=== PATIENT | male | born 1960 | race Caucasian/White ===

== ENCOUNTER 2019-12-02 22:00 | Observation (INO) ==
[2019-12-02] MEDS ORDERED: Isovue-370 500 ML BOTTLE IVP ONE (22:09)
[2019-12-02] MEDS ORDERED: Dexamethasone 4 MG/ML VIAL IVP ONE (22:11)
[2019-12-02 22:42] LABS: Basophils % 0.2 %; Eosinophils # 0.1 K/mcL (0.0-0.6); Eosinophils % 0.7 %; Hematocrit 45.1 % (37.5-50.1); Hemoglobin 15.5 g/dL (12.9-16.9); Immature Granulocytes % 0.7 % (0-4); Immature Platelets 2.1 % (1.1-6.1); Lymphocytes # 1.5 K/mcL (0.6-4.6); Lymphocytes % 11.4 %; Mean Corpuscular HGB Conc 34.4 g/dL (31.6-35.5); Mean Corpuscular Hemoglobin 27.9 pg (28.0-33.3); Mean Corpuscular Volume 81.1 fL (83.0-100.0); Mean Platelet Volume 9.6 fL (9.4-12.4); Monocytes # 0.8 K/mcL (0.0-1.3); Monocytes % 5.9 %; Neutrophils # 10.7 K/mcL (1.6-8.9); Platelet Count 203 K/mcL (140-400); Red Blood Count 5.56 M/mcL (4.19-5.50); Red Cell Distribution Width 13.8 % (11.5-14.5); Segmented Neutrophils % 81.1 %; White Blood Count 13.2 K/mcL (4.3-11.1)
[2019-12-02] MEDS ORDERED: Oxymetazoline Nasal SPRAY BOTTLE NS ONE (22:51)
[2019-12-02 22:54] LABS: BUN/Creatinine Ratio 21 (6-26); Blood Urea Nitrogen 15 mg/dL (8-23); Carbon Dioxide 26 mEq/L (23-29); Chloride 100 mEq/L (98-107); Glucose 277 mg/dL (70-105); Osmolality,Calculated 293 (280-300); Potassium 3.5 mEq/L (3.5-5.1); Sodium 136 mEq/L (136-145); eGFR For African Americans > 60 (> 60); eGFR For Non-African Americans > 60 (> 60)
[2019-12-03] MEDS: *HR* OxyCODONE Oral Soln 5 MG/5 ML UD.LIQ PO STA ×2 (01:37→01:41)
[2019-12-03] MEDS ORDERED: Naloxone 0.4 MG/ML INJ IVP PRN ×2 (02:17→17:30)
[2019-12-03] MEDS ORDERED: Dextrose Gel 15 GM/37.5 ML TUBE PO PRN ×6 (02:24→17:30)
[2019-12-03] MEDS ORDERED: *HR* Dextrose 50 % in Water (Syg) 50 ML SYRINGE IVP PRN ×3 (02:24→17:30)
[2019-12-03] MEDS ORDERED: D5% in Water 1,000 ML IVC PRN ×3 (02:24→17:30)
[2019-12-03] MEDS ORDERED: 0.9 % Sodium Chloride 1,000 ML IVC SCH (02:30)
[2019-12-03] MEDS ORDERED: Insulin DETEMIR 100 UNIT/ML X5UNITS SQ SCH ×3 (02:30→21:00)
[2019-12-03] MEDS ORDERED: Ketorolac 30 MG/ML VIAL IVP PRN ×2 (02:39→08:12)
[2019-12-03] MEDS: Insulin LISPRO 300 UNITS/3 ML VIAL SQ SCH ×6 (02:56→15:32)
[2019-12-03] MEDS: Dexamethasone 4 MG/ML VIAL IVP SCH ×3 (04:30→15:03)
[2019-12-03 05:51] LABS: Basophils % 0.1 %; Hematocrit 42.7 % (37.5-50.1); Hemoglobin 14.4 g/dL (12.9-16.9); Immature Granulocytes % 0.4 % (0-4); Lymphocytes # 0.5 K/mcL (0.6-4.6); Lymphocytes % 3.4 %; Mean Corpuscular HGB Conc 33.7 g/dL (31.6-35.5); Mean Corpuscular Hemoglobin 28.2 pg (28.0-33.3); Mean Corpuscular Volume 83.7 fL (83.0-100.0); Mean Platelet Volume 9.7 fL (9.4-12.4); Monocytes # 0.3 K/mcL (0.0-1.3); Monocytes % 2.3 %; Neutrophils # 13.3 K/mcL (1.6-8.9); Platelet Count 202 K/mcL (140-400); Red Cell Distribution Width 13.8 % (11.5-14.5); Segmented Neutrophils % 93.8 %; White Blood Count 14.2 K/mcL (4.3-11.1)
[2019-12-03] MEDS ORDERED: Dexamethasone 4 MG/ML VIAL IVP SCH ×2 (06:00→22:30)
[2019-12-03 06:08] LABS: Alanine Aminotransferase 17 Units/L (7-52); Albumin 3.9 g/dL (3.5-5.7); Albumin/Globulin Ratio 1.3 (1.1-2.2); Alkaline Phosphatase 74 Units/L (34-104); Aspartate Amino Transferase 12 Units/L (13-39); BUN/Creatinine Ratio 23 (6-26); Bilirubin,Total 0.5 mg/dL (0.3-1.0); Blood Urea Nitrogen 16 mg/dL (8-23); Calcium 8.8 mg/dL (8.6-10.3); Carbon Dioxide 26 mEq/L (23-29); Chloride 100 mEq/L (98-107); Globulin 2.9 g/dL (2.4-3.5); Glucose 301 mg/dL (70-105); Osmolality,Calculated 296 (280-300); Potassium 3.8 mEq/L (3.5-5.1); Sodium 137 mEq/L (136-145); Total Protein 6.8 g/dL (6.4-8.9); eGFR For African Americans > 60 (> 60); eGFR For Non-African Americans > 60 (> 60)
[2019-12-03] MEDS ORDERED: *HR* Metoprolol 5 MG/5 ML VIAL IVP PRN ×2 (08:09→17:30)
[2019-12-03] MEDS ORDERED: Metoprolol XL (24 HR) Succ 25 MG TAB.ER.24H PO SCH (09:00)
[2019-12-03] MEDS ORDERED: Aspirin Enteric Coated 81 MG Tablet PO SCH (09:00)
[2019-12-03] MEDS ORDERED: amLODIPine 5 MG TABLET PO SCH ×2 (09:00→16:28)
[2019-12-03] MEDS ORDERED: Gabapentin 300 MG CAPSULE PO SCH (09:00)
[2019-12-03] MEDS: Piperacillin/Tazobactam 3.375 GM in 0.9 % Sodium Chloride Mini Bag 100 ML IVPB SCH ×2 (09:02→16:37)
[2019-12-03] MEDS: Famotidine 20 MG/2 ML VIAL IVP SCH ×2 (09:02→16:36)
[2019-12-03] MEDS ORDERED: Ibuprofen 400 MG TABLET PO PRN ×2 (16:26→17:30)
[2019-12-03] MEDS ORDERED: Piperacillin/Tazobactam 3.375 GM in 0.9 % Sodium Chloride Mini Bag 100 ML IVPB SCH (18:00)
[2019-12-03] MEDS ORDERED: Famotidine 20 MG/2 ML VIAL IVP SCH (18:00)
[2019-12-03] MEDS ORDERED: Gabapentin 400 MG CAPSULE PO SCH ×3 (21:00)
[2019-12-03] MEDS ORDERED: Insulin LISPRO 300 UNITS/3 ML VIAL SQ SCH (21:00)
[2019-12-03] MEDS ORDERED: Acetaminophen 325 MG TABLET PO ONE (21:10)
[2019-12-04] MEDS: Piperacillin/Tazobactam 3.375 GM in 0.9 % Sodium Chloride Mini Bag 100 ML IVPB SCH ×2 (00:17→08:26)
[2019-12-04 01:25] LABS: Basophils % 0.1 %; Hematocrit 41.6 % (37.5-50.1); Hemoglobin 14.1 g/dL (12.9-16.9); Immature Granulocytes % 0.8 % (0-4); Lymphocytes # 0.5 K/mcL (0.6-4.6); Lymphocytes % 4.4 %; Mean Corpuscular HGB Conc 33.9 g/dL (31.6-35.5); Mean Corpuscular Hemoglobin 27.3 pg (28.0-33.3); Mean Corpuscular Volume 80.5 fL (83.0-100.0); Mean Platelet Volume 9.4 fL (9.4-12.4); Monocytes # 0.3 K/mcL (0.0-1.3); Monocytes % 2.9 %; Neutrophils # 10.7 K/mcL (1.6-8.9); Platelet Count 214 K/mcL (140-400); Red Blood Count 5.17 M/mcL (4.19-5.50); Red Cell Distribution Width 13.8 % (11.5-14.5); Segmented Neutrophils % 91.8 %; White Blood Count 11.7 K/mcL (4.3-11.1)
[2019-12-04 01:42] LABS: Alanine Aminotransferase 15 Units/L (7-52); Albumin 3.7 g/dL (3.5-5.7); Albumin/Globulin Ratio 1.3 (1.1-2.2); Alkaline Phosphatase 67 Units/L (34-104); Aspartate Amino Transferase 12 Units/L (13-39); BUN/Creatinine Ratio 23 (6-26); Bilirubin,Total 0.5 mg/dL (0.3-1.0); Blood Urea Nitrogen 18 mg/dL (8-23); Calcium 8.9 mg/dL (8.6-10.3); Carbon Dioxide 25 mEq/L (23-29); Chloride 103 mEq/L (98-107); Globulin 2.8 g/dL (2.4-3.5); Glucose 244 mg/dL (70-105); Magnesium 2.1 mg/dL (1.6-2.6); Osmolality,Calculated 296 (280-300); Sodium 138 mEq/L (136-145); Total Protein 6.5 g/dL (6.4-8.9); eGFR For African Americans > 60 (> 60); eGFR For Non-African Americans > 60 (> 60)
[2019-12-04] MEDS ORDERED: Famotidine 20 MG/2 ML VIAL IVP SCH (06:00)
[2019-12-04] MEDS ORDERED: Insulin LISPRO 300 UNITS/3 ML VIAL SQ SCH ×2 (07:30→21:00)
[2019-12-04] MEDS ORDERED: Ibuprofen 400 MG TABLET PO PRN (07:58)
[2019-12-04] MEDS ORDERED: predniSONE 20 MG TABLET PO SCH (09:00)
[2019-12-04] MEDS ORDERED: Insulin DETEMIR 100 UNIT/ML X5UNITS SQ SCH (09:00)
[2019-12-04] MEDS ORDERED: Gabapentin 300 MG CAPSULE PO SCH ×2 (09:00)
[2019-12-04] MEDS ORDERED: FLU Vac QV 19-20 (6Month+)/PF 0.5 ML SYRINGE IM ONE (09:41)
[2019-12-04] MEDS ORDERED: *HR* Metoprolol 5 MG/5 ML VIAL IVP PRN (10:29)
[2019-12-04 10:30] VITALS: BP 155/78
[2019-12-04] MEDS ORDERED: amLODIPine 5 MG TABLET PO SCH (16:24)
[2019-12-04] MEDS ORDERED: Famotidine 20 MG TABLET PO SCH (16:30)
== END 2019-12-04 11:06 | disposition home or self-care (01) ==
LOC: ICNU 22:00 → EMEROOARM 22:00 → ICNU 12-03 00:50 → SUATTDRO 12-03 02:17 → 2ANU 12-03 18:27
PROVIDERS: ADMIT Student in an Organized Health Care Education/Training Program; ATTEND Family Medicine

== ENCOUNTER 2019-12-07 09:15 | Observation (INO) ==
[2019-12-07] MEDS ORDERED: *HR* Propofol 200 MG/20 ML VIAL IVP ONE (10:03)
[2019-12-07] MEDS ORDERED: *HR* Midazolam HCl 2 MG/2 ML VIAL ONE (10:03)
[2019-12-07] MEDS ORDERED: *HR* FentaNYL (PF) 100 MCG/2 ML VIAL ONE ×2 (10:03→11:02)
[2019-12-07] MEDS ORDERED: Lidocaine -MPF 2% 2 ML VIAL ONE ×2 (10:06→12:46)
[2019-12-07] MEDS ORDERED: Ondansetron 4 MG/2 ML VIAL ONE (10:06)
[2019-12-07] MEDS ORDERED: Lidocaine HCL 4 ML Topical Solution (Laryng-O-Jet Kit Sterile Pak) TP ONE (10:06)
[2019-12-07] MEDS ORDERED: *HR* Succinylcholine 200 MG/10 ML VIAL IVP ONE ×2 (10:06→11:18)
[2019-12-07] MEDS ORDERED: *HR* Rocuronium Bromide 50 MG/5 ML VIAL ONE (10:07)
[2019-12-07 10:09] LABS: Hematocrit 45.2 % (37.5-50.1); Hemoglobin 15.1 g/dL (12.9-16.9); Mean Corpuscular HGB Conc 33.4 g/dL (31.6-35.5); Mean Corpuscular Hemoglobin 27.1 pg (28.0-33.3); Mean Platelet Volume 9.6 fL (9.4-12.4); Platelet Count 240 K/mcL (140-400); Red Blood Count 5.58 M/mcL (4.19-5.50); Red Cell Distribution Width 13.8 % (11.5-14.5); White Blood Count 16.7 K/mcL (4.3-11.1)
[2019-12-07 10:13] LABS: Prothrombin Time 10.9 Seconds (9.4-12.1)
[2019-12-07 10:16] LABS: Activated Partial Thrombo Time 31.5 Seconds (26.0-36.0)
[2019-12-07] MEDS ORDERED: Ferric Subsulfate 8 ML TOPICAL TP ONE (10:23)
[2019-12-07 10:27] LABS: BUN/Creatinine Ratio 34 (6-26); Blood Urea Nitrogen 25 mg/dL (8-23); Calcium 9.3 mg/dL (8.6-10.3); Carbon Dioxide 28 mEq/L (23-29); Chloride 97 mEq/L (98-107); Glucose 445 mg/dL (70-105); Osmolality,Calculated 308 (280-300); Potassium 4.1 mEq/L (3.5-5.1); Sodium 137 mEq/L (136-145); eGFR For African Americans > 60 (> 60); eGFR For Non-African Americans > 60 (> 60)
[2019-12-07] MEDS ORDERED: Metoclopramide 10 MG/2 ML VIAL ONE (10:28)
[2019-12-07] MEDS ORDERED: Famotidine 20 MG/2 ML VIAL ONE (10:28)
[2019-12-07] MEDS ORDERED: Acetaminophen IV 1,000 MG/100 ML INFUS..BTL ONE (10:28)
[2019-12-07] MEDS ORDERED: 0.9 % Sodium Chloride 1,000 ML IVC SCH (10:30)
[2019-12-07] MEDS ORDERED: Dexamethasone 4 MG/ML VIAL ONE (11:09)
[2019-12-07] MEDS ORDERED: *HR* Labetalol 20 MG/4 ML SYRINGE IVP PRN (11:12)
[2019-12-07] MEDS ORDERED: *HR* Promethazine 25 MG/ML VIAL IVP PRN (11:12)
[2019-12-07] MEDS ORDERED: Ondansetron 4 MG/2 ML VIAL IVP ONE (11:12)
[2019-12-07] MEDS ORDERED: Insulin Human Regular 20 UNIT in 0.9 % Sodium Chloride 10 ML IV ONE ×2 (11:50→11:53)
[2019-12-07] MEDS ORDERED: hydrALAZINE 25 MG TABLET PO SCH (12:09)
[2019-12-07] MEDS ORDERED: Insulin DETEMIR 100 UNIT/ML X5UNITS SQ SCH ×2 (12:11→12:15)
[2019-12-07] MEDS: *HR* HYDROmorphone (PF) 1 MG/ML SYRINGE IVP PRN ×2 (12:30→12:40)
[2019-12-07] MEDS ORDERED: *HR* Dextrose 50 % in Water (Syg) 50 ML SYRINGE IVP PRN ×2 (14:41→17:31)
[2019-12-07] MEDS ORDERED: D5% in Water 1,000 ML IVC PRN ×2 (14:41→17:31)
[2019-12-07] MEDS ORDERED: Dextrose Gel 15 GM/37.5 ML TUBE PO PRN ×4 (14:41→17:31)
[2019-12-07] MEDS ORDERED: Acetaminophen 325 MG TABLET PO PRN (14:41)
[2019-12-07] MEDS: Insulin LISPRO 300 UNITS/3 ML VIAL SQ SCH ×2 (15:27→17:51)
[2019-12-07] MEDS ORDERED: Naloxone 0.4 MG/ML INJ IVP PRN (16:13)
[2019-12-07] MEDS ORDERED: Ondansetron 4 MG/2 ML VIAL IVP PRN (16:13)
[2019-12-07] MEDS: Dexamethasone 4 MG/ML VIAL IVP SCH (16:37)
[2019-12-07] MEDS ORDERED: hydrOXYzine pamoate 25 MG CAPSULE PO PRN (17:18)
[2019-12-07] MEDS: *HR* HYDROmorphone 2 MG/ML SYRINGE IVP PRN ×2 (18:18→22:58)
[2019-12-07] MEDS: 0.9 % Sodium Chloride 1,000 ML IVC SCH ×2 (18:38→20:51)
[2019-12-07] MEDS ORDERED: Insulin LISPRO 300 UNITS/3 ML VIAL SQ SCH (21:00)
[2019-12-08] MEDS: Dexamethasone 4 MG/ML VIAL IVP SCH (00:49)
[2019-12-08 05:33] LABS: Basophils # 0.1 K/mcL (0.0-0.2); Basophils % 0.5 %; Hematocrit 40.7 % (37.5-50.1); Hemoglobin 13.9 g/dL (12.9-16.9); Immature Granulocytes % 2.2 % (0-4); Lymphocytes # 0.8 K/mcL (0.6-4.6); Lymphocytes % 5.3 %; Mean Corpuscular HGB Conc 34.2 g/dL (31.6-35.5); Mean Corpuscular Hemoglobin 27.4 pg (28.0-33.3); Mean Corpuscular Volume 80.3 fL (83.0-100.0); Mean Platelet Volume 9.5 fL (9.4-12.4); Monocytes # 0.3 K/mcL (0.0-1.3); Monocytes % 2.3 %; Neutrophils # 13.2 K/mcL (1.6-8.9); Platelet Count 227 K/mcL (140-400); Red Blood Count 5.07 M/mcL (4.19-5.50); Red Cell Distribution Width 13.7 % (11.5-14.5); Segmented Neutrophils % 89.7 %; White Blood Count 14.7 K/mcL (4.3-11.1)
[2019-12-08] MEDS: 0.9 % Sodium Chloride 1,000 ML IVC SCH (05:41)
[2019-12-08 05:46] LABS: BUN/Creatinine Ratio 30 (6-26); Blood Urea Nitrogen 17 mg/dL (8-23); Calcium 8.8 mg/dL (8.6-10.3); Carbon Dioxide 24 mEq/L (23-29); Chloride 100 mEq/L (98-107); Glucose 318 mg/dL (70-105); Magnesium 1.8 mg/dL (1.6-2.6); Osmolality,Calculated 296 (280-300); Potassium 4.3 mEq/L (3.5-5.1); Sodium 136 mEq/L (136-145); eGFR For African Americans > 60 (> 60); eGFR For Non-African Americans > 60 (> 60)
[2019-12-08 05:58] LABS: Thyroid Stimulating Hormone 0.362 mcIU/mL (0.340-5.600)
[2019-12-08 07:02] LABS: Estimated Average Glucose 243 mg/dl
[2019-12-08] MEDS ORDERED: Insulin LISPRO 300 UNITS/3 ML VIAL SQ SCH (08:00)
[2019-12-08] MEDS: Insulin LISPRO 300 UNITS/3 ML VIAL SQ SCH ×2 (08:22→12:17)
[2019-12-08] MEDS ORDERED: amLODIPine 5 MG TABLET PO SCH (09:00)
[2019-12-08] MEDS ORDERED: Insulin DETEMIR 100 UNIT/ML X5UNITS SQ SCH ×2 (09:00)
[2019-12-08] MEDS ORDERED: Cholecalciferol (D-3) 1,000 UNIT (25MCG) TABLET PO SCH (09:00)
[2019-12-08] MEDS ORDERED: Metoprolol XL (24 HR) Succ 25 MG TAB.ER.24H PO SCH (09:00)
[2019-12-08] MEDS ORDERED: Metoprolol XL (24 HR) Succ 50 MG TAB.ER.24H PO SCH (09:15)
[2019-12-08] MEDS ORDERED: Metoprolol XL (24 HR) Succ 25 MG TAB.ER.24H PO ONE (10:15)
[2019-12-08] MEDS ORDERED: *HR* LORazepam 2 MG/ML VIAL IVP PRN (11:11)
[2019-12-08 15:21] VITALS: BP 154/85
[2019-12-09] MEDS ORDERED: Metoprolol XL (24 HR) Succ 50 MG TAB.ER.24H PO SCH (09:00)
== END 2019-12-08 18:42 | disposition home or self-care (01) ==
LOC: 3ANU 09:15 → EMEROOARM 09:15 → 3ANU 10:24 → SUATTDRO 10:28
PROVIDERS: ADMIT Pharmacist; ATTEND Pharmacist

== ENCOUNTER 2019-12-13 07:40 | Observation (INO) ==
[2019-12-13] MEDS ORDERED: 0.9 % Sodium Chloride 1,000 ML IVC ONE (07:56)
[2019-12-13] MEDS ORDERED: 0.9 % Sodium Chloride 1,000 ML ONE (07:58)
[2019-12-13 08:13] LABS: Basophils % 0.3 %; Eosinophils # 0.4 K/mcL (0.0-0.6); Hematocrit 31.4 % (37.5-50.1); Immature Granulocytes % 0.8 % (0-4); Lymphocytes # 1.5 K/mcL (0.6-4.6); Lymphocytes % 10.5 %; Mean Corpuscular HGB Conc 34.7 g/dL (31.6-35.5); Mean Corpuscular Hemoglobin 27.9 pg (28.0-33.3); Mean Corpuscular Volume 80.5 fL (83.0-100.0); Mean Platelet Volume 9.8 fL (9.4-12.4); Monocytes # 0.9 K/mcL (0.0-1.3); Monocytes % 6.4 %; Neutrophils # 11.5 K/mcL (1.6-8.9); Platelet Count 236 K/mcL (140-400); Red Cell Distribution Width 13.9 % (11.5-14.5); White Blood Count 14.5 K/mcL (4.3-11.1)
[2019-12-13 08:15] LABS: Hemoglobin 10.9 g/dL (12.9-16.9)
[2019-12-13] MEDS ORDERED: *HR* FentaNYL (PF) 100 MCG/2 ML VIAL IVP ONE (08:18)
[2019-12-13 08:26] LABS: Prothrombin Time 11.8 Seconds (9.4-12.1)
[2019-12-13 08:46] LABS: BUN/Creatinine Ratio 37 (6-26); Blood Urea Nitrogen 26 mg/dL (8-23); Calcium 8.6 mg/dL (8.6-10.3); Carbon Dioxide 26 mEq/L (23-29); Chloride 99 mEq/L (98-107); Glucose 561 mg/dL (70-105); Osmolality,Calculated 314 (280-300); Potassium 4.2 mEq/L (3.5-5.1); Sodium 137 mEq/L (136-145); Troponin I < 0.03 ng/mL (< 0.04); eGFR For African Americans > 60 (> 60); eGFR For Non-African Americans > 60 (> 60)
[2019-12-13] MEDS ORDERED: Insulin Human Regular 10 UNIT in 0.9 % Sodium Chloride 10 ML IV ONE ×2 (08:47→19:35)
[2019-12-13] MEDS ORDERED: *HR* Succinylcholine 200 MG/10 ML VIAL IVP ONE (09:08)
[2019-12-13] MEDS ORDERED: Dexamethasone 4 MG/ML VIAL ONE (09:08)
[2019-12-13] MEDS ORDERED: Lidocaine -MPF 2% 2 ML VIAL ONE ×2 (09:08)
[2019-12-13] MEDS ORDERED: *HR* Propofol 200 MG/20 ML VIAL IVP ONE (09:08)
[2019-12-13] MEDS ORDERED: *HR* FentaNYL (PF) 100 MCG/2 ML VIAL ONE (09:08)
[2019-12-13] MEDS ORDERED: *HR* Rocuronium Bromide 50 MG/5 ML VIAL ONE (09:08)
[2019-12-13] MEDS ORDERED: Ondansetron 4 MG/2 ML VIAL ONE (09:08)
[2019-12-13] MEDS ORDERED: Lidocaine HCL 4 ML Topical Solution (Laryng-O-Jet Kit Sterile Pak) TP ONE (09:08)
[2019-12-13] MEDS ORDERED: Albuterol Neb 1.25 MG/3 ML VIAL IH ONE (09:14)
[2019-12-13] MEDS ORDERED: Insulin Human Regular 20 UNIT in 0.9 % Sodium Chloride 10 ML IV ONE (09:14)
[2019-12-13] MEDS ORDERED: Acetaminophen IV 1,000 MG/100 ML INFUS..BTL ONE (09:18)
[2019-12-13] MEDS ORDERED: Albuterol 2.5 MG/3 ML NEBULIZER ONE (09:18)
[2019-12-13] MEDS ORDERED: Metoclopramide 10 MG/2 ML VIAL ONE (09:18)
[2019-12-13] MEDS ORDERED: Famotidine 20 MG/2 ML VIAL ONE (09:18)
[2019-12-13] MEDS ORDERED: Albuterol 2.5 MG/3 ML NEBULIZER IH STA (09:20)
[2019-12-13] MEDS ORDERED: Bupivacaine/EPI 1:200k 0.5%PF 30 ML VIAL ONE (09:51)
[2019-12-13] MEDS ORDERED: Ondansetron 4 MG/2 ML VIAL IVP ONE (10:35)
[2019-12-13] MEDS ORDERED: ceFAZolin 2,000 MG in 0.9 % Sodium Chloride 100 ML IVPB ONE (10:35)
[2019-12-13] MEDS ORDERED: *HR* Labetalol 20 MG/4 ML SYRINGE IVP ONE (10:35)
[2019-12-13] MEDS ORDERED: *HR* Promethazine 25 MG/ML VIAL IVP PRN ×2 (10:35→11:36)
[2019-12-13] MEDS ORDERED: Morphine Sulfate 2 MG/ML SYRINGE IVP PRN (10:36)
[2019-12-13] MEDS ORDERED: *HR* Labetalol 20 MG/4 ML SYRINGE IVP PRN (10:39)
[2019-12-13] MEDS ORDERED: HYDROcodone/Acet 5-217 mg/10mL 10 ML UDC PO PRN (11:03)
[2019-12-13] MEDS ORDERED: Ondansetron 4 MG/2 ML VIAL IVP PRN ×2 (11:36→17:19)
[2019-12-13] MEDS ORDERED: Naloxone 0.4 MG/ML INJ IVP PRN ×2 (11:36→17:19)
[2019-12-13] MEDS ORDERED: MOM Conc 10 ML UD.LIQ PO PRN (11:36)
[2019-12-13] MEDS ORDERED: Mag Hydrox/Al Hydrox/Simeth 30 ML UDC PO PRN (11:36)
[2019-12-13] MEDS ORDERED: *HR* OxyCODONE Oral Soln 5 MG/5 ML UD.LIQ PO PRN (11:41)
[2019-12-13] MEDS ORDERED: *HR* Dextrose 50 % in Water (Syg) 50 ML SYRINGE IVP PRN ×2 (11:48→17:20)
[2019-12-13] MEDS ORDERED: D5% in Water 1,000 ML IVC PRN ×2 (11:48→17:20)
[2019-12-13] MEDS ORDERED: Dextrose Gel 15 GM/37.5 ML TUBE PO PRN ×4 (11:48→17:20)
[2019-12-13] MEDS ORDERED: hydrOXYzine pamoate 25 MG CAPSULE PO PRN (14:18)
[2019-12-13] MEDS ORDERED: Insulin LISPRO 300 UNITS/3 ML VIAL SQ SCH ×3 (16:30→21:00)
[2019-12-13] MEDS: Insulin LISPRO 300 UNITS/3 ML VIAL SQ SCH (18:28)
[2019-12-13] MEDS: *HR* OxyCODONE Oral Soln 5 MG/5 ML UD.LIQ PO PRN (20:12)
[2019-12-13] MEDS: Insulin DETEMIR 100 UNIT/ML X5UNITS SQ SCH (20:53)
[2019-12-13] MEDS ORDERED: [UNRECOGNIZED DRUG - OTHER] PO SCH (21:00)
[2019-12-13] MEDS ORDERED: LEVOMEFOLATE PO SCH (21:00)
[2019-12-13] MEDS ORDERED: B6 PO SCH (21:00)
[2019-12-13] MEDS ORDERED: B12 PO SCH (21:00)
[2019-12-13] MEDS ORDERED: ALGAL OIL PO SCH (21:00)
[2019-12-13] MEDS ORDERED: Gabapentin 400 MG CAPSULE PO SCH (21:00)
[2019-12-14 04:25] LABS: Basophils % 0.1 %; Hematocrit 26.3 % (37.5-50.1); Immature Granulocytes % 1.1 % (0-4); Lymphocytes # 0.8 K/mcL (0.6-4.6); Mean Corpuscular HGB Conc 33.1 g/dL (31.6-35.5); Mean Corpuscular Hemoglobin 27.7 pg (28.0-33.3); Mean Corpuscular Volume 83.8 fL (83.0-100.0); Mean Platelet Volume 9.7 fL (9.4-12.4); Monocytes # 0.4 K/mcL (0.0-1.3); Neutrophils # 9.5 K/mcL (1.6-8.9); Platelet Count 209 K/mcL (140-400); Red Blood Count 3.14 M/mcL (4.19-5.50); Red Cell Distribution Width 13.7 % (11.5-14.5); Segmented Neutrophils % 87.8 %; White Blood Count 10.8 K/mcL (4.3-11.1)
[2019-12-14 04:28] LABS: Hemoglobin 8.7 g/dL (12.9-16.9)
[2019-12-14 04:43] LABS: BUN/Creatinine Ratio 42 (6-26); Blood Urea Nitrogen 25 mg/dL (8-23); Calcium 8.4 mg/dL (8.6-10.3); Carbon Dioxide 29 mEq/L (23-29); Chloride 102 mEq/L (98-107); Glucose 305 mg/dL (70-105); Osmolality,Calculated 304 (280-300); Potassium 4.2 mEq/L (3.5-5.1); Sodium 139 mEq/L (136-145); eGFR For African Americans > 60 (> 60); eGFR For Non-African Americans > 60 (> 60)
[2019-12-14] MEDS ORDERED: Insulin LISPRO 300 UNITS/3 ML VIAL SQ SCH (07:30)
[2019-12-14] MEDS: Insulin LISPRO 300 UNITS/3 ML VIAL SQ SCH ×4 (08:49→13:57)
[2019-12-14] MEDS: *HR* OxyCODONE Oral Soln 5 MG/5 ML UD.LIQ PO PRN (08:55)
[2019-12-14] MEDS: Insulin DETEMIR 100 UNIT/ML X5UNITS SQ SCH (08:56)
[2019-12-14] MEDS ORDERED: Cholecalciferol (D-3) 1,000 UNIT (25MCG) TABLET PO SCH (09:00)
[2019-12-14] MEDS ORDERED: Metoprolol XL (24 HR) Succ 50 MG TAB.ER.24H PO SCH ×2 (09:00)
[2019-12-14] MEDS ORDERED: amLODIPine 5 MG TABLET PO SCH ×2 (09:00)
[2019-12-14] MEDS ORDERED: Multivit/Ca/Min/Fe/FA 1 TAB TABLET PO SCH (09:00)
[2019-12-14] MEDS ORDERED: *HR* Pioglitazone 45 MG TABLET PO SCH (09:00)
[2019-12-14] MEDS ORDERED: Gabapentin 300 MG CAPSULE PO SCH (09:00)
[2019-12-14 10:59] VITALS: BP 127/70
[2019-12-14] MEDS ORDERED: Insulin LISPRO 300 UNITS/3 ML VIAL SQ ONE (21:10)
== END 2019-12-14 14:26 | disposition home or self-care (01) ==
LOC: EMEROOARM 07:40 → 3ANU 07:40 → EMEROOARM 09:07 → SUATTDRO 09:20 → 3BNU 10:19
PROVIDERS: ADMIT Internal Medicine; ATTEND Internal Medicine

== ENCOUNTER 2020-01-28 10:12 | Inpatient (IN) ==
[2020-01-28 10:33] LABS: Basophils % 0.2 %; Eosinophils # 0.1 K/mcL (0.0-0.6); Eosinophils % 2.9 %; Hematocrit 34.7 % (37.5-50.1); Hemoglobin 11.3 g/dL (12.9-16.9); Immature Granulocytes % 0.4 % (0-4); Lymphocytes # 0.3 K/mcL (0.6-4.6); Lymphocytes % 6.7 %; Mean Corpuscular HGB Conc 32.6 g/dL (31.6-35.5); Mean Corpuscular Hemoglobin 25.7 pg (28.0-33.3); Mean Corpuscular Volume 78.9 fL (83.0-100.0); Mean Platelet Volume 8.5 fL (9.4-12.4); Monocytes # 0.5 K/mcL (0.0-1.3); Monocytes % 10.9 %; Neutrophils # 3.6 K/mcL (1.6-8.9); Platelet Count 150 K/mcL (140-400); Red Cell Distribution Width 13.9 % (11.5-14.5); Segmented Neutrophils % 78.9 %; White Blood Count 4.5 K/mcL (4.3-11.1)
[2020-01-28] MEDS ORDERED: 0.9 % Sodium Chloride 1,000 ML IVC STA (10:48)
[2020-01-28 10:57] LABS: Alanine Aminotransferase 28 Units/L (7-52); Albumin 3.4 g/dL (3.5-5.7); Albumin/Globulin Ratio 1.3 (1.1-2.2); Alkaline Phosphatase 71 Units/L (34-104); Aspartate Amino Transferase 22 Units/L (13-39); BUN/Creatinine Ratio 18 (6-26); Bilirubin,Direct 0.1 mg/dL (0.0-0.2); Bilirubin,Indirect 0.4 mg/dL (0.0-1.0); Bilirubin,Total 0.5 mg/dL (0.3-1.0); Blood Urea Nitrogen 15 mg/dL (8-23); Calcium 8.6 mg/dL (8.6-10.3); Carbon Dioxide 23 mEq/L (23-29); Chloride 94 mEq/L (98-107); Globulin 2.6 g/dL (2.4-3.5); Glucose 214 mg/dL (70-105); Osmolality,Calculated 283 (280-300); Potassium 3.3 mEq/L (3.5-5.1); Sodium 133 mEq/L (136-145); eGFR For African Americans > 60 (> 60); eGFR For Non-African Americans > 60 (> 60)
[2020-01-28 10:58] LABS: Troponin I < 0.03 ng/mL (< 0.04)
[2020-01-28 11:10] LABS: Magnesium 1.3 mg/dL (1.6-2.6)
[2020-01-28 11:24] LABS: Thyroid Stimulating Hormone 0.666 mcIU/mL (0.340-5.600)
[2020-01-28 11:51] LABS: Bilirubin,Urine Moderate (Negative); Blood,Urine Negative (Negative); Color,Urine Yellow (Yellow); Glucose,Urine (UA) 250 mg/dL (Normal); Ketones,Urine >=160 mg/dL (Negative); Leukocyte Esterase,Urine Negative (Negative); Nitrite,Urine Negative (Negative); PH,Urine 5.5 pH Units (5.0-8.0); Protein,Urine 100 mg/dL (Neg-Trace); Specific Gravity,Urine 1.018 (1.010-1.025); Urobilinogen,Urine Normal (Normal)
[2020-01-28 11:53] LABS: Hyaline Casts,Urine None Seen per lpf (None-Few); RBC,Urine 0-3 per hpf (0-3); Squamous Epithelial Cell,Urine Many per lpf (None-Few)
[2020-01-28 11:54] LABS: Clarity,Urine Slightly Hazy (Clear)
[2020-01-28 12:04] LABS: Amorphous Sediment,Urine Few per hpf (Few); Bacteria,Urine Moderate per hpf (None-Few)
[2020-01-28] MEDS ORDERED: *HR* HYDROcodone/Acet 5/325 mg TABLET PO PRN (12:32)
[2020-01-28] MEDS ORDERED: *HR* Promethazine 25 MG/ML VIAL IVP PRN (12:32)
[2020-01-28] MEDS ORDERED: Acetaminophen 325 MG TABLET PO PRN (12:32)
[2020-01-28] MEDS ORDERED: *HR* OxyCODONE Immed Rel 5 MG TABLET PO PRN (12:32)
[2020-01-28] MEDS ORDERED: Naloxone 0.4 MG/ML INJ IVP PRN (12:32)
[2020-01-28] MEDS ORDERED: Ondansetron ODT 4 MG TAB.RAPDIS SL PRN (12:32)
[2020-01-28] MEDS ORDERED: *HR* Heparin 5,000 UNIT/ML VIAL IVP ONE (12:45)
[2020-01-28] MEDS ORDERED: *HR* Heparin 5,000 UNIT/ML VIAL IVP PRN ×2 (12:45)
[2020-01-28] MEDS ORDERED: Potassium Chloride 40 MEQ, Lidocaine 1% 2 ML in 0.9 % Sodium Chloride 500 ML IVPB ONE (12:47)
[2020-01-28] MEDS ORDERED: Ipratropium/Albuterol Neb 3 ML IH PRN (12:50)
[2020-01-28] MEDS ORDERED: Dextrose Gel 15 GM/37.5 ML TUBE PO PRN ×2 (12:51)
[2020-01-28] MEDS ORDERED: *HR* Dextrose 50 % in Water (Syg) 50 ML SYRINGE IVP PRN (12:51)
[2020-01-28] MEDS ORDERED: D5% in Water 1,000 ML IVC PRN (12:51)
[2020-01-28] MEDS ORDERED: *HR* Metoprolol 5 MG/5 ML VIAL IVP PRN (12:55)
[2020-01-28 13:09] LABS: Hematocrit 34.4 % (37.5-50.1); Hemoglobin 10.9 g/dL (12.9-16.9); Mean Corpuscular HGB Conc 31.7 g/dL (31.6-35.5); Mean Corpuscular Hemoglobin 25.1 pg (28.0-33.3); Mean Corpuscular Volume 79.3 fL (83.0-100.0); Mean Platelet Volume 8.4 fL (9.4-12.4); Platelet Count 153 K/mcL (140-400); Red Blood Count 4.34 M/mcL (4.19-5.50); Red Cell Distribution Width 13.9 % (11.5-14.5); White Blood Count 3.9 K/mcL (4.3-11.1)
[2020-01-28 13:13] LABS: Heparin anti-factor XA UFH < 0.04 IU/mL (0.30-0.70); INR 1.2; Prothrombin Time 13.5 Seconds (9.4-12.1)
[2020-01-28] MEDS: Heparin 25,000 UNIT/250 ML D5W 25,000 UNIT/250 ML IV.SOLN IVC SCH (13:21)
[2020-01-28] MEDS: 0.9 % Sodium Chloride 1,000 ML IVC SCH (13:22)
[2020-01-28] MEDS: Insulin LISPRO 300 UNITS/3 ML VIAL SQ SCH (16:34)
[2020-01-28] MEDS: Ondansetron ODT 4 MG TAB.RAPDIS SL SCH (17:34)
[2020-01-28] MEDS ORDERED: Insulin LISPRO 300 UNITS/3 ML VIAL SQ SCH (21:00)
[2020-01-28] MEDS ORDERED: Gabapentin 400 MG CAPSULE PO SCH (21:00)
[2020-01-28] MEDS ORDERED: *HR* LORazepam 2 MG/ML VIAL IVP ONE (21:36)
[2020-01-28] MEDS: Ondansetron 4 MG/2 ML VIAL IVP PRN (22:31)
[2020-01-29] MEDS: Ondansetron ODT 4 MG TAB.RAPDIS SL SCH ×2 (00:30→07:13)
[2020-01-29 02:05] LABS: Hematocrit 31.7 % (37.5-50.1); Hemoglobin 10.2 g/dL (12.9-16.9); Mean Corpuscular HGB Conc 32.2 g/dL (31.6-35.5); Mean Corpuscular Hemoglobin 25.2 pg (28.0-33.3); Mean Corpuscular Volume 78.5 fL (83.0-100.0); Mean Platelet Volume 8.9 fL (9.4-12.4); Platelet Count 147 K/mcL (140-400); Red Blood Count 4.04 M/mcL (4.19-5.50); White Blood Count 3.1 K/mcL (4.3-11.1)
[2020-01-29 02:24] LABS: BUN/Creatinine Ratio 20 (6-26); Blood Urea Nitrogen 12 mg/dL (8-23); Calcium 7.8 mg/dL (8.6-10.3); Carbon Dioxide 23 mEq/L (23-29); Chloride 102 mEq/L (98-107); Glucose 131 mg/dL (70-105); Magnesium 1.4 mg/dL (1.6-2.6); Osmolality,Calculated 280 (280-300); Phosphorous 2.9 mg/dL (2.7-4.5); Sodium 134 mEq/L (136-145); eGFR For African Americans > 60 (> 60); eGFR For Non-African Americans > 60 (> 60)
[2020-01-29] MEDS: 0.9 % Sodium Chloride 1,000 ML IVC SCH (03:28)
[2020-01-29] MEDS: Ondansetron 4 MG/2 ML VIAL IVP PRN ×2 (05:58→21:35)
[2020-01-29] MEDS: Heparin 25,000 UNIT/250 ML D5W 25,000 UNIT/250 ML IV.SOLN IVC SCH (07:17)
[2020-01-29] MEDS ORDERED: Morphine Sulfate 2 MG/ML SYRINGE IVP PRN ×2 (08:26→15:07)
[2020-01-29] MEDS ORDERED: Aspirin Enteric Coated 81 MG Tablet PO SCH (09:00)
[2020-01-29] MEDS ORDERED: Gabapentin 300 MG CAPSULE PO SCH (09:00)
[2020-01-29] MEDS ORDERED: *HR* Metoprolol 5 MG/5 ML VIAL IVP SCH (09:00)
[2020-01-29] MEDS ORDERED: Metoprolol XL (24 HR) Succ 50 MG TAB.ER.24H PO SCH (09:00)
[2020-01-29] MEDS ORDERED: amLODIPine 5 MG TABLET PO SCH (09:00)
[2020-01-29] MEDS ORDERED: Cholecalciferol (D-3) 1,000 UNIT (25MCG) TABLET PO SCH (09:00)
[2020-01-29] MEDS: Insulin LISPRO 300 UNITS/3 ML VIAL SQ SCH (09:03)
[2020-01-29] MEDS ORDERED: Ondansetron 4 MG/2 ML VIAL IVP SCH (12:00)
[2020-01-29] MEDS ORDERED: Insulin LISPRO 300 UNITS/3 ML VIAL SQ SCH ×2 (12:00→18:00)
[2020-01-29] MEDS ORDERED: *HR* FentaNYL (PF) 100 MCG/2 ML VIAL ONE (12:54)
[2020-01-29] MEDS ORDERED: *HR* Succinylcholine 200 MG/10 ML VIAL IVP ONE (12:55)
[2020-01-29] MEDS ORDERED: *HR* Propofol 200 MG/20 ML VIAL IVP ONE (12:55)
[2020-01-29] MEDS ORDERED: Ondansetron 4 MG/2 ML VIAL ONE (12:58)
[2020-01-29] MEDS ORDERED: Lidocaine -MPF 2% 2 ML VIAL ONE (12:58)
[2020-01-29] MEDS ORDERED: Dexamethasone 4 MG/ML VIAL ONE (12:58)
[2020-01-29] MEDS ORDERED: Lidocaine -MPF 4% 5 ML AMPUL ONE (12:59)
[2020-01-29] MEDS ORDERED: *HR* Labetalol 20 MG/4 ML SYRINGE IVP PRN (13:22)
[2020-01-29] MEDS ORDERED: *HR* Promethazine 25 MG/ML VIAL IVP PRN (13:22)
[2020-01-29] MEDS ORDERED: Ondansetron 4 MG/2 ML VIAL IVP PRN (13:22)
[2020-01-29] MEDS ORDERED: D5% in Water 1,000 ML IVC PRN (14:33)
[2020-01-29] MEDS ORDERED: *HR* Dextrose 50 % in Water (Syg) 50 ML SYRINGE IVP PRN (14:33)
[2020-01-29] MEDS ORDERED: Dextrose Gel 15 GM/37.5 ML TUBE PO PRN ×2 (14:33)
[2020-01-29] MEDS ORDERED: Ondansetron 4 MG/2 ML VIAL IVP ONE (14:50)
[2020-01-29] MEDS ORDERED: Naloxone 0.4 MG/ML INJ IVP PRN (15:25)
[2020-01-29] MEDS: Morphine Sulfate 2 MG/ML SYRINGE IVP PRN ×2 (15:29→21:04)
[2020-01-29] MEDS: *HR* Heparin 5,000 UNIT/ML VIAL SQ SCH (17:48)
[2020-01-29] MEDS ORDERED: *HR* Heparin 5,000 UNIT/ML VIAL SQ SCH ×2 (18:00)
[2020-01-29] MEDS ORDERED: Sucralfate 1 GM TABLET PO SCH (21:00)
[2020-01-29] MEDS ORDERED: dexAMETHasone 4 MG TABLET PO SCH ×2 (21:00)
[2020-01-30] MEDS ORDERED: *HR* Metoprolol 5 MG/5 ML VIAL IVP ONE (00:53)
[2020-01-30] MEDS: Gabapentin 400 MG CAPSULE GTUBE SCH ×2 (04:55→21:42)
[2020-01-30] MEDS: dexAMETHasone 4 MG TABLET PO SCH ×3 (04:55→21:42)
[2020-01-30] MEDS: *HR* Heparin 5,000 UNIT/ML VIAL SQ SCH ×2 (06:04→18:52)
[2020-01-30] MEDS: Morphine Sulfate 2 MG/ML SYRINGE IVP PRN (07:39)
[2020-01-30] MEDS: Ondansetron 4 MG/2 ML VIAL IVP PRN ×3 (07:41→20:28)
[2020-01-30] MEDS ORDERED: Fluconazole 100 MG TABLET PO SCH ×2 (09:00)
[2020-01-30] MEDS ORDERED: levoFLOXacin 500 MG TABLET PO SCH (09:00)
[2020-01-30] MEDS: Gabapentin 300 MG CAPSULE GTUBE SCH (10:10)
[2020-01-30] MEDS ORDERED: *HR* Dextrose 50 % in Water (Syg) 50 ML SYRINGE IVP PRN (10:10)
[2020-01-30] MEDS ORDERED: D5% in Water 1,000 ML IVC PRN (10:10)
[2020-01-30] MEDS ORDERED: Dextrose Gel 15 GM/37.5 ML TUBE PO PRN ×2 (10:10)
[2020-01-30] MEDS ORDERED: *HR* FentaNYL PATCH 25 MCG PATCH TD PRN (10:12)
[2020-01-30] MEDS: amLODIPine 5 MG TABLET GTUBE SCH (10:12)
[2020-01-30] MEDS: levoFLOXacin 500 MG TABLET GTUBE SCH (10:12)
[2020-01-30] MEDS: Aspirin 81 MG TAB.CHEW GTUBE SCH (10:12)
[2020-01-30] MEDS: Fluconazole 40 MG/ML UDC GTUBE SCH (10:35)
[2020-01-30 11:06] LABS: Basophils % 0.2 %; Eosinophils # 0.1 K/mcL (0.0-0.6); Eosinophils % 1.2 %; Hematocrit 30.9 % (37.5-50.1); Hemoglobin 10.2 g/dL (12.9-16.9); Immature Granulocytes % 0.5 % (0-4); Lymphocytes # 0.3 K/mcL (0.6-4.6); Lymphocytes % 7.1 %; Mean Corpuscular Hemoglobin 25.8 pg (28.0-33.3); Mean Corpuscular Volume 78.2 fL (83.0-100.0); Mean Platelet Volume 8.6 fL (9.4-12.4); Monocytes # 0.3 K/mcL (0.0-1.3); Monocytes % 7.6 %; Neutrophils # 3.5 K/mcL (1.6-8.9); Platelet Count 128 K/mcL (140-400); Red Blood Count 3.95 M/mcL (4.19-5.50); Red Cell Distribution Width 13.3 % (11.5-14.5); Segmented Neutrophils % 83.4 %; White Blood Count 4.2 K/mcL (4.3-11.1)
[2020-01-30 11:26] LABS: BUN/Creatinine Ratio 15 (6-26); Blood Urea Nitrogen 8 mg/dL (8-23); Calcium 7.9 mg/dL (8.6-10.3); Carbon Dioxide 20 mEq/L (23-29); Chloride 97 mEq/L (98-107); Glucose 118 mg/dL (70-105); Magnesium 1.2 mg/dL (1.6-2.6); Osmolality,Calculated 269 (280-300); Potassium 3.5 mEq/L (3.5-5.1); Sodium 130 mEq/L (136-145); eGFR For African Americans > 60 (> 60); eGFR For Non-African Americans > 60 (> 60)
[2020-01-30] MEDS: *HR* Promethazine 25 MG/ML VIAL IVP PRN ×2 (12:05→21:41)
[2020-01-30] MEDS: Insulin LISPRO 300 UNITS/3 ML VIAL SQ SCH ×2 (12:06→18:51)
[2020-01-30] MEDS ORDERED: *HR* OxyCODONE Immed Rel 5 MG TABLET GTUBE PRN (12:47)
[2020-01-31 05:27] LABS: Basophils % 0.3 %; Eosinophils % 0.3 %; Hematocrit 32.5 % (37.5-50.1); Hemoglobin 10.8 g/dL (12.9-16.9); Immature Granulocytes % 0.6 % (0-4); Lymphocytes # 0.2 K/mcL (0.6-4.6); Lymphocytes % 6.6 %; Mean Corpuscular HGB Conc 33.2 g/dL (31.6-35.5); Mean Corpuscular Hemoglobin 25.8 pg (28.0-33.3); Mean Corpuscular Volume 77.6 fL (83.0-100.0); Mean Platelet Volume 9.3 fL (9.4-12.4); Monocytes # 0.2 K/mcL (0.0-1.3); Monocytes % 4.8 %; Neutrophils # 2.9 K/mcL (1.6-8.9); Platelet Count 124 K/mcL (140-400); Red Blood Count 4.19 M/mcL (4.19-5.50); Red Cell Distribution Width 13.3 % (11.5-14.5); Segmented Neutrophils % 87.4 %; White Blood Count 3.3 K/mcL (4.3-11.1)
[2020-01-31 05:46] LABS: BUN/Creatinine Ratio 18 (6-26); Blood Urea Nitrogen 10 mg/dL (8-23); Calcium 8.2 mg/dL (8.6-10.3); Carbon Dioxide 24 mEq/L (23-29); Chloride 96 mEq/L (98-107); Glucose 193 mg/dL (70-105); Magnesium 1.5 mg/dL (1.6-2.6); Osmolality,Calculated 278 (280-300); Potassium 3.7 mEq/L (3.5-5.1); Sodium 132 mEq/L (136-145); eGFR For African Americans > 60 (> 60); eGFR For Non-African Americans > 60 (> 60)
[2020-01-31] MEDS: *HR* Heparin 5,000 UNIT/ML VIAL SQ SCH (08:44)
[2020-01-31] MEDS: Insulin LISPRO 300 UNITS/3 ML VIAL SQ SCH ×3 (08:50→12:59)
[2020-01-31] MEDS: Gabapentin 300 MG CAPSULE GTUBE SCH (10:22)
[2020-01-31] MEDS: Aspirin 81 MG TAB.CHEW GTUBE SCH (10:22)
[2020-01-31] MEDS: levoFLOXacin 500 MG TABLET GTUBE SCH (10:22)
[2020-01-31] MEDS: amLODIPine 5 MG TABLET GTUBE SCH (10:23)
[2020-01-31] MEDS: dexAMETHasone 4 MG TABLET PO SCH (10:23)
[2020-01-31] MEDS: Fluconazole 40 MG/ML UDC GTUBE SCH (10:27)
[2020-01-31 15:28] VITALS: BP 110/71
== END 2020-01-31 16:39 | disposition home or self-care (01) ==
LOC: EMEROOARM 10:12 → 3ANU 10:12 → SUATTDRO 11:51 → 3ANU 12:30
PROVIDERS: ADMIT Family Medicine; ATTEND Internal Medicine